=== PATIENT | male | born 1975 | race Hispanic/Latino ===

== ENCOUNTER 2024-05-19 16:45 | Inpatient (IN) | payer OTHER ==
[~2024-05-19] VITALS: Ht 193 cm; Wt 140.6 kg
[~2024-05-19 16:45] MED LIST: ASPI-1005 PO; ATOR40TA71 PO; DAPA5TAB PO; FURO20TA6 PO; LISI2.5T13 PO; METF-444 PO; METO50 PO; SEMA0.258 SQ; WARF2.5T85 PO
[2024-05-19 17:06] LABS: BASOPHILS # (AUTO) 0.03 K/uL (0.00-0.20); BASOPHILS % (AUTO) 0.2 % (0.0-5.0); EOSINOPHILS # (AUTO) 0.18 K/uL (0.00-0.70); EOSINOPHILS % (AUTO) 1.3 % (0.0-8.0); HEMATOCRIT 37.5 % (42-54); IMMATURE GRANULOCYTE ABSOLUTE 0.03 K/uL (0-1); LYMPHOCYTES # (AUTO) 3.5 K/uL (1.0-4.8); LYMPHOCYTES % (AUTO) 24.9 % (21.0-51.0); MEAN CORPUSCULAR HEMOGLOBIN 27.3 pg (27.0-33.0); MEAN CORPUSCULAR HGB CONC 31.5 g/dL (32.0-36.0); MEAN CORPUSCULAR VOLUME 86.6 fL (79-99); MONOCYTES # (AUTO) 1.1 K/uL (0.1-1.0); MONOCYTES % (AUTO) 7.6 % (3.0-13.0); NEUTROPHILS # (AUTO) 9.2 K/uL (1.8-7.7); NEUTROPHILS % (AUTO) 65.8 % (40.0-77.0); PLATELET COUNT (AUTO) 322 K/uL (130-400); RED BLOOD CELL COUNT(AUTO) 4.33 MIL/uL (4.50-6.20); RED CELL DISTRIBUTION WIDTH 13.5 % (11.0-15.5)
[2024-05-19 17:13] LABS: CREATININE 1.3 mg/dL (0.5-1.3); POTASSIUM 3.9 mmol/L (3.5-5.1)
[2024-05-19] MEDS ORDERED: WARF2.5T9 PO (17:13)
[2024-05-19] MEDS ORDERED: METF-446 PO (17:13)
[2024-05-19] MEDS ORDERED: ATOR20TA65 PO (17:13)
[2024-05-19] MEDS ORDERED: WARF5TAB8 PO (17:13)
[2024-05-19 17:39] LABS: INR 2.53 (0.85-1.15); PROTHROMBIN TIME 25.5 SEC (9.6-11.6)
[2024-05-19 17:40] LABS: PARTIAL THROMBOPLASTIN TIME 46.1 SEC (26.3-35.5)
[2024-05-19] MEDS ORDERED: PoTASSium chl 10% ELIXIR 20MEQ 20 MEQ/15 ML UDCUP PO PRN (21:30)
[2024-05-19] MEDS ORDERED: GLUCAGON 1MG KIT 1 MG ML IM PRN (21:30)
[2024-05-19] MEDS ORDERED: DEXTROSE 50%-WATER 50 ML DISP.SYRIN IV PRN (21:30)
[2024-05-19] MEDS ORDERED: acetaMINOPHEN 325 MG TAB PO PRN ×2 (21:30)
[2024-05-19 22:25] VITALS: BP 140/91; PULSE 93; RESP 18; TEMP 98.8
[2024-05-19 22:28] LABS: APPEARANCE,URINE CLEAR (CLEAR); BILIRUBIN,URINE NEGATIVE (NEGATIVE); COLOR,URINE LIGHT-YELLOW (YELLOW); GLUCOSE, URINE (UA) >=1000 mg/dL (NEGATIVE); KETONES,URINE NEGATIVE (NEGATIVE); LEUKOCYTE ESTERASE ,URINE NEGATIVE Leu/uL (NEGATIVE); NITRATE,URINE NEGATIVE (NEGATIVE); PH,URINE 5.5 (5.0-8.0); PROTEIN,URINE NEGATIVE (NEGATIVE); UROBILINOGEN,URINE 0.2 mg/dL (0.2-1.0)
[2024-05-19 22:29] LABS: AMPHET/METH SCREEN,URINE NEGATIVE (NEGATIVE); BARBITURATE SCREEN, URINE NEGATIVE (NEGATIVE); BENZODIAZEPINES SCREEN,URINE NEGATIVE (NEGATIVE); CANNABINOID SCREEN,URINE NEGATIVE (NEGATIVE); COCAINE SCREEN,URINE NEGATIVE (NEGATIVE); OPIATE SCREEN,URINE NEGATIVE (NEGATIVE); PHENCYCLIDINE SCREEN,URINE NEGATIVE (NEGATIVE)
[2024-05-19 22:31] LABS: ADD UA MICROSCOPIC YES
[2024-05-19 22:32] LABS: BACTERIA,URINE RARE /HPF (None Seen); RBC,URINE 0-1 /HPF (0-1); SQUAMOUS EPITHELIAL CELL,UR RARE /HPF (0-2); WBC,URINE 0-1 /HPF (0-1)
[2024-05-20 04:00] VITALS: BP 112/76; PULSE 94; RESP 18; TEMP 99
[2024-05-20 04:04] LABS: BASOPHILS # (AUTO) 0.03 K/uL (0.00-0.20); BASOPHILS % (AUTO) 0.2 % (0.0-5.0); EOSINOPHILS # (AUTO) 0.18 K/uL (0.00-0.70); EOSINOPHILS % (AUTO) 1.4 % (0.0-8.0); HEMATOCRIT 35.1 % (42-54); IMMATURE GRANULOCYTE ABSOLUTE 0.05 K/uL (0-1); LYMPHOCYTES # (AUTO) 3.3 K/uL (1.0-4.8); LYMPHOCYTES % (AUTO) 25.2 % (21.0-51.0); MEAN CORPUSCULAR HEMOGLOBIN 27.1 pg (27.0-33.0); MEAN CORPUSCULAR HGB CONC 30.8 g/dL (32.0-36.0); MONOCYTES # (AUTO) 1.1 K/uL (0.1-1.0); MONOCYTES % (AUTO) 8.7 % (3.0-13.0); NEUTROPHILS # (AUTO) 8.3 K/uL (1.8-7.7); NEUTROPHILS % (AUTO) 64.1 % (40.0-77.0); PLATELET COUNT (AUTO) 279 K/uL (130-400); RED BLOOD CELL COUNT(AUTO) 3.99 MIL/uL (4.50-6.20); RED CELL DISTRIBUTION WIDTH 13.4 % (11.0-15.5); WHITE BLOOD COUNT (AUTO) 12.9 K/uL (4.8-10.8)
[2024-05-20 04:14] LABS: INR 2.39 (0.85-1.15); PROTHROMBIN TIME 24.2 SEC (9.6-11.6)
[2024-05-20 04:28] LABS: ALBUMIN 2.8 g/dL (3.5-5.0); BILIRUBIN,TOTAL 1.3 mg/dL (0.2-1.0); CREATININE 1.2 mg/dL (0.5-1.3); TOTAL PROTEIN, SERUM 7.8 g/dL (6.0-8.3)
[2024-05-20 05:17] LABS: ERYTHROCYTE SEDIMENTATION RATE 79 MM/HR (0-20)
[2024-05-20] MEDS: INSULIN humuLIN R 100 UNIT/ML 3ML SQ SCH (05:36)
[2024-05-20 08:00] VITALS: BP 121/81; PULSE 98; RESP 15; TEMP 98.9
[2024-05-20] MEDS: LISINOPRIL 2.5 MG TABLET PO SCH (08:16)
[2024-05-20] MEDS: furoSEMIDE 20 MG TABLET PO SCH (08:16)
[2024-05-20] MEDS: metoPROLOL tartRATE 50 MG TAB PO SCH (08:16)
[2024-05-20] MEDS: FAMOTIDINE 20MG TAB PO SCH (08:16)
[2024-05-20] MEDS: ASPIRIN 81MG CHEW TAB PO SCH (08:17)
[2024-05-20 11:45] VITALS: BP 101/70; PULSE 71; RESP 14; TEMP 98.4
[2024-05-20] MEDS ORDERED: PHARMACY COMMUNICATION 1 EACH EACH MISC SCH (13:00)
[2024-05-20 16:00] VITALS: BP 111/69; PULSE 78; RESP 18; TEMP 98.8
[2024-05-20] MEDS: WARFARIN SODIUM 5 MG TAB PO SCH (17:10)
[2024-05-20 19:40] VITALS: O2SAT 98
[2024-05-20 20:00] VITALS: BP 123/82; PULSE 103; RESP 18; TEMP 98.2
[2024-05-21] VITALS (7 sets, daily range): BP systolic 112–147; BP diastolic 70–86; PULSE 87–109; RESP 20–22; TEMP 98.2–99; O2SAT 98
[2024-05-21 05:10] LABS: BASOPHILS # (AUTO) 0.03 K/uL (0.00-0.20); BASOPHILS % (AUTO) 0.3 % (0.0-5.0); EOSINOPHILS % (AUTO) 1.8 % (0.0-8.0); HEMATOCRIT 32.4 % (42-54); IMMATURE GRANULOCYTE ABSOLUTE 0.03 K/uL (0-1); LYMPHOCYTES # (AUTO) 3.1 K/uL (1.0-4.8); LYMPHOCYTES % (AUTO) 28.6 % (21.0-51.0); MEAN CORPUSCULAR HEMOGLOBIN 27.1 pg (27.0-33.0); MEAN CORPUSCULAR HGB CONC 31.5 g/dL (32.0-36.0); MEAN CORPUSCULAR VOLUME 86.2 fL (79-99); MONOCYTES # (AUTO) 0.9 K/uL (0.1-1.0); MONOCYTES % (AUTO) 8.4 % (3.0-13.0); NEUTROPHILS # (AUTO) 6.6 K/uL (1.8-7.7); NEUTROPHILS % (AUTO) 60.6 % (40.0-77.0); PLATELET COUNT (AUTO) 297 K/uL (130-400); RED BLOOD CELL COUNT(AUTO) 3.76 MIL/uL (4.50-6.20); RED CELL DISTRIBUTION WIDTH 13.5 % (11.0-15.5); WHITE BLOOD COUNT (AUTO) 10.9 K/uL (4.8-10.8)
[2024-05-21 05:29] LABS: ALBUMIN 2.6 g/dL (3.5-5.0); BILIRUBIN,TOTAL 1.4 mg/dL (0.2-1.0); CREATININE 1.1 mg/dL (0.5-1.3); MAGNESIUM 1.8 mg/dL (1.80-2.40); PHOSPHORUS 3.6 mg/dL (2.5-4.9); POTASSIUM 3.6 mmol/L (3.5-5.1); TOTAL PROTEIN, SERUM 7.7 g/dL (6.0-8.3)
[2024-05-21] MEDS: PoTASSium chloRIDE 20MEQ ER 20 MEQ ERTAB PO PRN (06:12)
[2024-05-21] MEDS: MAGNESIUM 2GM PREMIX 50ML 50 ML IV PRN (06:13)
[2024-05-21] MEDS ORDERED: WARFARIN SODIUM 2.5 MG TAB PO SCH ×2 (09:00→17:00)
[2024-05-21] MEDS: atorVAStatin 20 MG TABLET PO SCH (09:14)
[2024-05-22] VITALS (7 sets, daily range): BP systolic 108–134; BP diastolic 70–90; PULSE 65–97; RESP 18–21; TEMP 97.9–99; O2SAT 96–98
[2024-05-22 05:05] LABS: BASOPHILS # (AUTO) 0.03 K/uL (0.00-0.20); BASOPHILS % (AUTO) 0.3 % (0.0-5.0); EOSINOPHILS # (AUTO) 0.22 K/uL (0.00-0.70); EOSINOPHILS % (AUTO) 1.9 % (0.0-8.0); HEMATOCRIT 33.1 % (42-54); IMMATURE GRANULOCYTE ABSOLUTE 0.05 K/uL (0-1); LYMPHOCYTES # (AUTO) 2.4 K/uL (1.0-4.8); LYMPHOCYTES % (AUTO) 21.2 % (21.0-51.0); MEAN CORPUSCULAR HEMOGLOBIN 26.9 pg (27.0-33.0); MEAN CORPUSCULAR HGB CONC 31.1 g/dL (32.0-36.0); MEAN CORPUSCULAR VOLUME 86.4 fL (79-99); MONOCYTES # (AUTO) 0.9 K/uL (0.1-1.0); MONOCYTES % (AUTO) 7.7 % (3.0-13.0); NEUTROPHILS # (AUTO) 7.8 K/uL (1.8-7.7); NEUTROPHILS % (AUTO) 68.5 % (40.0-77.0); PLATELET COUNT (AUTO) 308 K/uL (130-400); RED BLOOD CELL COUNT(AUTO) 3.83 MIL/uL (4.50-6.20); RED CELL DISTRIBUTION WIDTH 13.4 % (11.0-15.5); WHITE BLOOD COUNT (AUTO) 11.4 K/uL (4.8-10.8)
[2024-05-22 05:13] LABS: ALBUMIN 2.7 g/dL (3.5-5.0); BILIRUBIN,TOTAL 1.3 mg/dL (0.2-1.0); CREATININE 1.1 mg/dL (0.5-1.3); MAGNESIUM 1.9 mg/dL (1.80-2.40); PHOSPHORUS 3.4 mg/dL (2.5-4.9); TOTAL PROTEIN, SERUM 7.8 g/dL (6.0-8.3)
[2024-05-22 05:23] LABS: INR 2.28 (0.85-1.15); PROTHROMBIN TIME 23.2 SEC (9.6-11.6)
[2024-05-22] MEDS: COLCHicine 0.6 MG TABLET PO SCH (09:40)
[2024-05-22] MEDS ORDERED: WARFARIN SODIUM 5 MG TAB PO SCH (17:00)
[2024-05-22] MEDS: HEParin 25,000 UNITS/250ML D5W 250 ML IV SCH (19:46)
[2024-05-22] MEDS: HEParin 5,000 UNIT VIAL IV PRN (19:46)
[2024-05-22] MEDS: PHYTONADIONE 10 MG in 0.9%NACL 50ML 50 ML IVPB ONE (19:50)
[2024-05-23] VITALS (20 sets, daily range): BP systolic 115–171; BP diastolic 61–87; PULSE 59–112; RESP 12–32; TEMP 98–98.5; O2SAT 97–99
[2024-05-23 04:34] LABS: BASOPHILS # (AUTO) 0.04 K/uL (0.00-0.20); BASOPHILS % (AUTO) 0.3 % (0.0-5.0); EOSINOPHILS # (AUTO) 0.19 K/uL (0.00-0.70); EOSINOPHILS % (AUTO) 1.5 % (0.0-8.0); HEMATOCRIT 31.3 % (42-54); IMMATURE GRANULOCYTE ABSOLUTE 0.04 K/uL (0-1); LYMPHOCYTES # (AUTO) 3.5 K/uL (1.0-4.8); MEAN CORPUSCULAR HEMOGLOBIN 26.9 pg (27.0-33.0); MEAN CORPUSCULAR HGB CONC 31.6 g/dL (32.0-36.0); MEAN CORPUSCULAR VOLUME 85.1 fL (79-99); MONOCYTES % (AUTO) 7.9 % (3.0-13.0); NEUTROPHILS # (AUTO) 7.7 K/uL (1.8-7.7); PLATELET COUNT (AUTO) 307 K/uL (130-400); RED BLOOD CELL COUNT(AUTO) 3.68 MIL/uL (4.50-6.20); RED CELL DISTRIBUTION WIDTH 13.5 % (11.0-15.5); WHITE BLOOD COUNT (AUTO) 12.4 K/uL (4.8-10.8)
[2024-05-23 04:45] LABS: INR 1.35 (0.85-1.15); PROTHROMBIN TIME 14.3 SEC (9.6-11.6)
[2024-05-23 04:47] LABS: PARTIAL THROMBOPLASTIN TIME 68.6 SEC (26.3-35.5)
[2024-05-23 04:56] LABS: ALBUMIN 2.6 g/dL (3.5-5.0); BILIRUBIN,TOTAL 1.4 mg/dL (0.2-1.0); CREATININE 1.2 mg/dL (0.5-1.3); MAGNESIUM 1.9 mg/dL (1.80-2.40); PHOSPHORUS 3.8 mg/dL (2.5-4.9); POTASSIUM 3.7 mmol/L (3.5-5.1); TOTAL PROTEIN, SERUM 7.5 g/dL (6.0-8.3)
[2024-05-23] MEDS: PoTASSium chloRIDE 20MEQ/100ML 100 ML IV PRN (08:00)
[2024-05-23] MEDS: ondanSETRON 4MG INJ IV PRN (08:38)
[2024-05-23] MEDS ORDERED: LIDOCAINE PF 100MG/5ML (2%) SYRINGE 5ML ONE (19:59)
[2024-05-23] MEDS ORDERED: dexaMETHasone SOD PHOSPHATE 10MG/ML 1ML VIAL ONE (19:59)
[2024-05-23] MEDS ORDERED: SUCCINYLCHOLINE CHLORIDE 20 MG/ML 10 ML VIAL ONE ×2 (19:59→20:01)
[2024-05-23] MEDS ORDERED: proPOFol 10 MG/ML 20ML VIAL IV ONE (19:59)
[2024-05-23] MEDS ORDERED: GLYCOPYRROLATE 0.2 MG/ML 5 ML VIAL ONE (20:00)
[2024-05-23] MEDS ORDERED: NEOSTIGMINE METHYLSULFATE 1MG/ML IV ONE (20:00)
[2024-05-23] MEDS ORDERED: acetaMINOPHEN 325 MG TAB PO PRN (20:00)
[2024-05-23] MEDS ORDERED: FENTanyl CITRate PF 50 MCG/1 ML 2ML VIAL ONE ×2 (20:00→20:19)
[2024-05-23] MEDS ORDERED: rocuRONium bROMide 10MG/1ML 5ML VL ONE (20:00)
[2024-05-23] MEDS ORDERED: ETOMIDATE 20MG VIAL ONE (20:01)
[2024-05-23] MEDS: ceFAZolin SODIUM 2 GM VIAL IVPB ONE (20:11)
[2024-05-23] MEDS ORDERED: MEPERIDINE-PF 25 MG/ML SYG ONE (20:18)
[2024-05-23] MEDS: SUGAMMADEX SODIUM 200 MG/2 ML VIAL IV ONE (21:33)
[2024-05-23 21:50] LABS: BASOPHILS # (AUTO) 0.04 K/uL (0.00-0.20); BASOPHILS % (AUTO) 0.3 % (0.0-5.0); EOSINOPHILS # (AUTO) 0.09 K/uL (0.00-0.70); EOSINOPHILS % (AUTO) 0.7 % (0.0-8.0); HEMATOCRIT 35.1 % (42-54); IMMATURE GRANULOCYTE ABSOLUTE 0.05 K/uL (0-1); LYMPHOCYTES # (AUTO) 2.5 K/uL (1.0-4.8); LYMPHOCYTES % (AUTO) 20.2 % (21.0-51.0); MEAN CORPUSCULAR HGB CONC 31.1 g/dL (32.0-36.0); MEAN CORPUSCULAR VOLUME 86.9 fL (79-99); MONOCYTES % (AUTO) 7.7 % (3.0-13.0); NEUTROPHILS # (AUTO) 8.8 K/uL (1.8-7.7); NEUTROPHILS % (AUTO) 70.7 % (40.0-77.0); PLATELET COUNT (AUTO) 321 K/uL (130-400); RED BLOOD CELL COUNT(AUTO) 4.04 MIL/uL (4.50-6.20); RED CELL DISTRIBUTION WIDTH 13.4 % (11.0-15.5); WHITE BLOOD COUNT (AUTO) 12.4 K/uL (4.8-10.8)
[2024-05-23] MEDS: morPHINE 2 MG SYG IVP PRN (21:56)
[2024-05-23 22:41] LABS: APPEARANCE BODY FLUID TURBID (CLEAR); COLOR,BODY FLUID RED (LT YELLOW); SPECIMENTYPE,BODY FLUID PERICARDIAL; TOTAL VOLUME,BODY FLUID 40 mL
[2024-05-23 22:58] LABS: BODY FLUID RBC 2428840 /cu. mm.; BODY FLUID WBC 5097 /cu. mm.
[2024-05-23 23:08] LABS: AMYLASE,BODY FLUID 0 U/L; GLUCOSE,BODY FLUID 51 mg/dL (1-40); LIPASE,BODY FLUID 10 U/L; TOTAL PROTEIN,BODY FLUID 6.4 g/dL
[2024-05-23 23:22] LABS: PH, BODY FLUID 8
[2024-05-24] VITALS (33 sets, daily range): BP systolic 124–148; BP diastolic 63–93; PULSE 80–103; RESP 17–34; TEMP 97.8–98.4; O2SAT 97–99
[2024-05-24 00:14] LABS: BF EOSINOPHIL 3 %; BF LYMPHOCYTE 37 %
[2024-05-24] MEDS: traMADol HCL 50 MG TABLET PO PRN ×2 (00:39→22:04)
[2024-05-24] MEDS: ceFAZolin SODIUM 2 GM VIAL IVPB SCH (04:39)
[2024-05-24 04:42] LABS: BASOPHILS # (AUTO) 0.04 K/uL (0.00-0.20); BASOPHILS % (AUTO) 0.3 % (0.0-5.0); EOSINOPHILS # (AUTO) 0.05 K/uL (0.00-0.70); EOSINOPHILS % (AUTO) 0.4 % (0.0-8.0); HEMATOCRIT 33.8 % (42-54); IMMATURE GRANULOCYTE ABSOLUTE 0.05 K/uL (0-1); LYMPHOCYTES # (AUTO) 1.7 K/uL (1.0-4.8); LYMPHOCYTES % (AUTO) 13.7 % (21.0-51.0); MEAN CORPUSCULAR HEMOGLOBIN 27.2 pg (27.0-33.0); MEAN CORPUSCULAR HGB CONC 31.7 g/dL (32.0-36.0); MONOCYTES # (AUTO) 0.9 K/uL (0.1-1.0); MONOCYTES % (AUTO) 7.3 % (3.0-13.0); NEUTROPHILS # (AUTO) 9.9 K/uL (1.8-7.7); NEUTROPHILS % (AUTO) 77.9 % (40.0-77.0); PLATELET COUNT (AUTO) 341 K/uL (130-400); RED BLOOD CELL COUNT(AUTO) 3.93 MIL/uL (4.50-6.20); RED CELL DISTRIBUTION WIDTH 13.4 % (11.0-15.5); WHITE BLOOD COUNT (AUTO) 12.7 K/uL (4.8-10.8)
[2024-05-24 05:01] LABS: INR 1.14 (0.85-1.15); PROTHROMBIN TIME 12.2 SEC (9.6-11.6)
[2024-05-24 05:04] LABS: ALBUMIN 2.6 g/dL (3.5-5.0); BILIRUBIN,TOTAL 1.6 mg/dL (0.2-1.0); POTASSIUM 4.1 mmol/L (3.5-5.1); TOTAL PROTEIN, SERUM 7.7 g/dL (6.0-8.3)
[2024-05-24] MEDS: WARFARIN SODIUM 5 MG TAB PO ONE (18:32)
[2024-05-25] VITALS (9 sets, daily range): BP systolic 108–136; BP diastolic 61–82; PULSE 85–100; RESP 18–24; TEMP 97.3–98.7; O2SAT 97
[2024-05-25 03:49] LABS: BASOPHILS # (AUTO) 0.04 K/uL (0.00-0.20); BASOPHILS % (AUTO) 0.3 % (0.0-5.0); EOSINOPHILS # (AUTO) 0.32 K/uL (0.00-0.70); EOSINOPHILS % (AUTO) 2.3 % (0.0-8.0); HEMATOCRIT 32.9 % (42-54); IMMATURE GRANULOCYTE ABSOLUTE 0.07 K/uL (0-1); LYMPHOCYTES # (AUTO) 2.3 K/uL (1.0-4.8); MEAN CORPUSCULAR HEMOGLOBIN 26.7 pg (27.0-33.0); MEAN CORPUSCULAR HGB CONC 31.3 g/dL (32.0-36.0); MEAN CORPUSCULAR VOLUME 85.2 fL (79-99); MONOCYTES # (AUTO) 1.5 K/uL (0.1-1.0); MONOCYTES % (AUTO) 10.6 % (3.0-13.0); NEUTROPHILS # (AUTO) 9.5 K/uL (1.8-7.7); NEUTROPHILS % (AUTO) 69.3 % (40.0-77.0); PLATELET COUNT (AUTO) 314 K/uL (130-400); RED BLOOD CELL COUNT(AUTO) 3.86 MIL/uL (4.50-6.20); RED CELL DISTRIBUTION WIDTH 13.6 % (11.0-15.5); WHITE BLOOD COUNT (AUTO) 13.8 K/uL (4.8-10.8)
[2024-05-25 03:56] LABS: CREATININE 1.1 mg/dL (0.5-1.3); MAGNESIUM 1.8 mg/dL (1.80-2.40); POTASSIUM 3.9 mmol/L (3.5-5.1)
[2024-05-25 04:01] LABS: INR 1.27 (0.85-1.15); PROTHROMBIN TIME 13.5 SEC (9.6-11.6)
[2024-05-25] MEDS: WARFARIN SODIUM 7.5 MG TAB PO ONE (17:21)
[2024-05-25] MEDS: LACTULOSE 20 GM/30 ML UDCUP PO ONE (21:07)
[2024-05-26 01:12] VITALS: BP 109/79; PULSE 91; RESP 18; TEMP 98
[2024-05-26 03:34] LABS: BASOPHILS # (AUTO) 0.05 K/uL (0.00-0.20); BASOPHILS % (AUTO) 0.5 % (0.0-5.0); EOSINOPHILS % (AUTO) 3.7 % (0.0-8.0); HEMATOCRIT 31.3 % (42-54); IMMATURE GRANULOCYTE ABSOLUTE 0.04 K/uL (0-1); LYMPHOCYTES # (AUTO) 1.9 K/uL (1.0-4.8); LYMPHOCYTES % (AUTO) 17.5 % (21.0-51.0); MEAN CORPUSCULAR HEMOGLOBIN 26.7 pg (27.0-33.0); MEAN CORPUSCULAR HGB CONC 31.9 g/dL (32.0-36.0); MEAN CORPUSCULAR VOLUME 83.7 fL (79-99); MONOCYTES # (AUTO) 1.1 K/uL (0.1-1.0); MONOCYTES % (AUTO) 10.2 % (3.0-13.0); NEUTROPHILS # (AUTO) 7.4 K/uL (1.8-7.7); NEUTROPHILS % (AUTO) 67.7 % (40.0-77.0); PLATELET COUNT (AUTO) 310 K/uL (130-400); RED BLOOD CELL COUNT(AUTO) 3.74 MIL/uL (4.50-6.20); RED CELL DISTRIBUTION WIDTH 13.4 % (11.0-15.5); WHITE BLOOD COUNT (AUTO) 10.9 K/uL (4.8-10.8)
[2024-05-26 03:47] LABS: ALBUMIN 2.2 g/dL (3.5-5.0); BILIRUBIN,TOTAL 0.9 mg/dL (0.2-1.0); CREATININE 1.1 mg/dL (0.5-1.3); MAGNESIUM 1.8 mg/dL (1.80-2.40); POTASSIUM 3.5 mmol/L (3.5-5.1); TOTAL PROTEIN, SERUM 7.5 g/dL (6.0-8.3)
[2024-05-26 03:48] LABS: INR 1.41 (0.85-1.15); PROTHROMBIN TIME 14.8 SEC (9.6-11.6)
[2024-05-26 05:01] VITALS: BP 134/76; PULSE 80; RESP 18; TEMP 98.5
[2024-05-26 08:15] VITALS: BP 130/65; PULSE 91; RESP 18; TEMP 98.5
[2024-05-26] MEDS: WARFARIN SODIUM 10 MG TABLET PO ONE (10:29)
[2024-05-26 12:51] VITALS: BP 125/72; PULSE 95; RESP 18; TEMP 98.7
[2024-05-26 14:56] LABS: INR 1.68 (0.85-1.15); PROTHROMBIN TIME 17.5 SEC (9.6-11.6)
[2024-05-26 14:58] LABS: PARTIAL THROMBOPLASTIN TIME 64.2 SEC (26.3-35.5)
[2024-05-26 16:00] VITALS: BP 106/56; PULSE 86; RESP 18; TEMP 99
[2024-05-26] MEDS ORDERED: WARFARIN SODIUM 7.5 MG TAB PO SCH (16:00)
[2024-05-26] MEDS: HEParin 25,000 UNITS/250ML D5W 250 ML IV SCH (19:29)
[2024-05-26 20:00] VITALS: BP 110/74; PULSE 93; RESP 18; TEMP 98.5; O2SAT 97
[2024-05-26 20:51] LABS: INR 1.95 (0.85-1.15)
[2024-05-26 20:52] LABS: PARTIAL THROMBOPLASTIN TIME 67.5 SEC (26.3-35.5)
[2024-05-27] VITALS: BP 122/60; PULSE 80; RESP 18; TEMP 98.7
[2024-05-27 04:00] VITALS: BP 130/71; PULSE 86; RESP 18; TEMP 98.8
[2024-05-27 04:26] LABS: INR 2.26 (0.85-1.15)
[2024-05-27 08:35] VITALS: BP 125/76; PULSE 90; RESP 18; TEMP 98.2
[2024-05-27] MEDS: WARFARIN SODIUM 5 MG TAB PO ONE (08:40)
[2024-05-27 08:42] VITALS: O2SAT 96
[2024-05-27 11:56] VITALS: BP 124/68; PULSE 81; RESP 18; TEMP 98.2
[2024-05-27 15:16] LABS: BASOPHILS # (AUTO) 0.04 K/uL (0.00-0.20); BASOPHILS % (AUTO) 0.5 % (0.0-5.0); EOSINOPHILS # (AUTO) 0.32 K/uL (0.00-0.70); EOSINOPHILS % (AUTO) 4.2 % (0.0-8.0); HEMATOCRIT 33.3 % (42-54); IMMATURE GRANULOCYTE ABSOLUTE 0.03 K/uL (0-1); LYMPHOCYTES # (AUTO) 2.3 K/uL (1.0-4.8); LYMPHOCYTES % (AUTO) 30.1 % (21.0-51.0); MEAN CORPUSCULAR HEMOGLOBIN 26.4 pg (27.0-33.0); MEAN CORPUSCULAR HGB CONC 31.5 g/dL (32.0-36.0); MEAN CORPUSCULAR VOLUME 83.9 fL (79-99); MONOCYTES # (AUTO) 0.8 K/uL (0.1-1.0); MONOCYTES % (AUTO) 10.1 % (3.0-13.0); NEUTROPHILS # (AUTO) 4.1 K/uL (1.8-7.7); NEUTROPHILS % (AUTO) 54.7 % (40.0-77.0); PLATELET COUNT (AUTO) 347 K/uL (130-400); RED BLOOD CELL COUNT(AUTO) 3.97 MIL/uL (4.50-6.20); RED CELL DISTRIBUTION WIDTH 13.2 % (11.0-15.5); WHITE BLOOD COUNT (AUTO) 7.6 K/uL (4.8-10.8)
[2024-05-27 15:25] LABS: INR 2.86 (0.85-1.15); PROTHROMBIN TIME 28.6 SEC (9.6-11.6)
[2024-05-27 15:28] LABS: ALBUMIN 2.2 g/dL (3.5-5.0); BILIRUBIN,TOTAL 0.5 mg/dL (0.2-1.0); POTASSIUM 3.7 mmol/L (3.5-5.1); TOTAL PROTEIN, SERUM 7.8 g/dL (6.0-8.3)
[2024-05-27 15:50] LABS: PARTIAL THROMBOPLASTIN TIME 113.1 SEC (26.3-35.5)
== END 2024-05-27 18:06 | disposition home or self-care (01) | DRG 271 ==
LOC: EDH 16:45 → EDHIP 21:19 → 4DH 22:10 → 2CV 05-23 21:00 → 2CH 05-24 19:30 → 2DH 05-25 05:50
PROVIDERS: ADMIT Hospitalist; ATTEND Hospitalist
PROC: 0W9D00Z Drainage of Pericardial Cavity with Drainage Device, Open Approach (ICD-10-PCS; principal; 2024-05-23 19:49)
DX: I31.39 Other pericardial effusion (noninflammatory) (principal); D59.9 Acquired hemolytic anemia, unspecified; I50.30 Unspecified diastolic (congestive) heart failure; E87.1 Hypo-osmolality and hyponatremia; Z20.822 Contact with and (suspected) exposure to COVID-19; I35.0 Nonrheumatic aortic (valve) stenosis; E66.01 Morbid (severe) obesity due to excess calories; E11.9 Type 2 diabetes mellitus without complications; E78.00 Pure hypercholesterolemia, unspecified; I11.0 Hypertensive heart disease with heart failure; E83.42 Hypomagnesemia; E87.8 Other disorders of electrolyte and fluid balance, not elsewhere classified; E78.5 Hyperlipidemia, unspecified; I25.10 Atherosclerotic heart disease of native coronary artery without angina pectoris; R79.1 Abnormal coagulation profile; Z95.2 Presence of prosthetic heart valve; Z79.01 Long term (current) use of anticoagulants; Z79.899 Other long term (current) drug therapy; Z82.3 Family history of stroke; Z82.49 Family history of ischemic heart disease and other diseases of the circulatory system; Z68.37 Body mass index [BMI] 37.0-37.9, adult
CPT/HCPCS: 36415; 71045; 71046; 80048; 80053; 80305; 81001; 82150; 82945; 82948; 83615; 83690; 83735; 83986; 84100; 84157; 84484; 85025; 85610; 85651; 85730; 86850; 86900; 86901; 87071; 87076; 87116; 87205; 87206; 88305; 89051; 93005; 93306; A7048; G0378; J0330; J0690; J1100; J1644; J1815; J2003; J2175; J2270; J2405; J2704; J2710; J3010; J3430; J3475; J3480; J3490; J7030; J7040; J7070; A4222; A4223; A4649; A6219; C1713

== ENCOUNTER 2024-10-08 07:03 | Day surgery (SDC) | payer OTHER ==
[2024-10-08] VITALS (11 sets, daily range): BP systolic 115–143; BP diastolic 60–86; PULSE 65–77; RESP 15–18; TEMP 97.3–207.1
[~2024-10-08] VITALS: Ht 182.9 cm; Wt 145.1 kg
[~2024-10-08 07:03] MED LIST changes: -FURO20TA6 PO; +METF-446 PO; -METO50 PO; -WARF2.5T85 PO; +WARF2.5T9 PO; +WARF5TAB8 PO
[2024-10-08] MEDS: 0.9%NACL 1000ML 1,000 ML IV ONE (08:05)
[2024-10-08] MEDS ORDERED: ENOX40DI8 SQ (08:10)
[2024-10-08] MEDS ORDERED: proPOFol 10 MG/ML 20ML VIAL IV ONE ×2 (09:47)
== END 2024-10-08 11:16 | disposition home or self-care (01) ==
LOC: ENDO 07:03 → DAH 07:03 → ENDO 11:16
PROVIDERS: ATTEND Internal Medicine
DX: Z12.11 Encounter for screening for malignant neoplasm of colon (principal); D12.3 Benign neoplasm of transverse colon; D12.8 Benign neoplasm of rectum; K29.70 Gastritis, unspecified, without bleeding; B96.81 Helicobacter pylori [H. pylori] as the cause of diseases classified elsewhere; K57.30 Diverticulosis of large intestine without perforation or abscess without bleeding; K64.8 Other hemorrhoids; R12 Heartburn; K22.89 Other specified disease of esophagus; E78.2 Mixed hyperlipidemia; I10 Essential (primary) hypertension; E78.5 Hyperlipidemia, unspecified; K21.9 Gastro-esophageal reflux disease without esophagitis; Z79.84 Long term (current) use of oral hypoglycemic drugs; Z90.49 Acquired absence of other specified parts of digestive tract; Z79.82 Long term (current) use of aspirin; Z79.01 Long term (current) use of anticoagulants; Z79.899 Other long term (current) drug therapy
CPT/HCPCS: 82948 ×2; 43239; 45385; J7030 ×2; J2704 ×2; A4620; A4215 ×2; A4223; A7002; A4222; A4221; A4663; A4606; J3490

== ENCOUNTER 2025-01-08 06:57 | Day surgery (SDC) | payer OTHER ==
[2025-01-08] VITALS (12 sets, daily range): BP systolic 114–143; BP diastolic 61–77; PULSE 62–84; RESP 15–17; TEMP 96.7–97.6
[~2025-01-08] VITALS: Ht 182.9 cm; Wt 147.4 kg
[~2025-01-08 06:57] MED LIST changes: +0.9%NACL 1000ML 1,000 ML IV ONE; +ENOX40DI8 SQ; -METF-444 PO
[2025-01-08] MEDS ORDERED: proPOFol 10 MG/ML 20ML VIAL IV ONE (09:39)
[2025-01-08] MEDS ORDERED: OMEP40CA21 PO (10:47)
--- NOTE | 2025-01-08 11:01 | NUR ---
Full and complete discharge instructions given to Patient and Family both verbally and in writing. Explained GI procedure precautions and follow up. All questions answered. PIV removed with catheter tip intact. Home with Family W/C to POV.
== END 2025-01-08 11:20 | disposition home or self-care (01) ==
LOC: ENDO 06:57 → DAH 06:57 → ENDO 11:20
PROVIDERS: ATTEND Internal Medicine Gastroenterology
DX: K22.89 Other specified disease of esophagus (principal); K22.2 Esophageal obstruction; K21.00 Gastro-esophageal reflux disease with esophagitis, without bleeding; K44.9 Diaphragmatic hernia without obstruction or gangrene; K57.30 Diverticulosis of large intestine without perforation or abscess without bleeding; K22.81 Esophageal polyp; K64.8 Other hemorrhoids; R12 Heartburn; K29.70 Gastritis, unspecified, without bleeding; B96.81 Helicobacter pylori [H. pylori] as the cause of diseases classified elsewhere; D12.6 Benign neoplasm of colon, unspecified; E78.2 Mixed hyperlipidemia; I10 Essential (primary) hypertension; E11.9 Type 2 diabetes mellitus without complications; Z79.899 Other long term (current) drug therapy; Z79.84 Long term (current) use of oral hypoglycemic drugs; Z79.01 Long term (current) use of anticoagulants; Z90.49 Acquired absence of other specified parts of digestive tract; Z95.2 Presence of prosthetic heart valve
CPT/HCPCS: 43259; 82948 ×2; J7030; J2704; A4620; A4215 ×2; A4223; A4222; A4221; A4663; A4606; J3490